=== PATIENT | male | born 1990 | race Caucasian/White ===

== ENCOUNTER → 2016-09-04 | Outpatient (CLI) | payer OTHER, BC ==
[2016-09-04 17:32] LABS: ESTIMATED AVERAGE GLUCOSE 148 mg/dl; HA1C FLAG Normal (Normal)
== END | disposition home or self-care (01) ==
LOC: C.LAB1850 15:53
PROVIDERS: ATTEND Nurse Practitioner Adult Health
DX: E10.9 Type 1 diabetes mellitus without complications (principal)

== ENCOUNTER → 2017-02-06 | Outpatient (CLI) | payer OTHER, BC ==
[2017-02-06 16:12] LABS: ALT/SGPT 23 U/L (12-78); BLOOD UREA NITROGEN 18 mg/dl (7-18); BUN/CREATININE RATIO 18.7 (10-20); CALCIUM 9.4 mg/dl (8.5-10.1); CARBON DIOXIDE 30 mmol/L (21-32); CHLORIDE 103 mmol/L (98-107); CREATININE 0.94 mg/dl (0.60-1.40); GLUCOSE 124 mg/dl (70-99); POTASSIUM 4.1 mmol/L (3.5-5.1); SODIUM 139 mmol/L (136-145)
[2017-02-06 16:19] LABS: RATIO 13.3 mcg/mg (0-30.0)
[2017-02-06 16:23] LABS: ALB/GLOB RATIO 1.1 (0.9-2); ALKALINE PHOSPHATASE 66 U/L (45-117); AST/SGOT 22 U/L (15-37); CHOLESTEROL 144 mg/dl (0-200); CHOLESTEROL/HDL RATIO 2.6; HDL CHOLESTEROL 55 mg/dl; LDL CHOLESTEROL CALCULATED 69 mg/dl; TRIGLYCERIDES 98 mg/dl (0-150); VERY LOW DENSITY LIPOPROT CALC 20 mg/dl
[2017-02-07 04:45] LABS: ESTIMATED AVERAGE GLUCOSE 143 mg/dl; HA1C FLAG Normal (Normal)
== END | disposition home or self-care (01) ==
LOC: C.LAB1850 14:44
PROVIDERS: ATTEND Nurse Practitioner Adult Health
DX: E10.9 Type 1 diabetes mellitus without complications (principal)